=== PATIENT | female | born 2005 | race Caucasian/White ===

== ENCOUNTER 2024-06-12 18:16 | Emergency (ER) | payer MEDICAID ==
[~2024-06-12] VITALS: Ht 160 cm; Wt 84.3 kg
[~2024-06-12 18:16] MED LIST: ACET500T58 PO; FLUC200T PO; MET500T PO
[2024-06-12] MEDS ORDERED: SODIUM CHLORIDE 0.9% 1,000 ML IV ONE (18:45)
[2024-06-12] MEDS ORDERED: ONDANSETRON HCL 4 MG/2 ML VIAL IV ONE (18:45)
[2024-06-12 19:13] VITALS: BP 108/84; PULSE 98; RESP 16; O2SAT 100
[2024-06-12 19:33] LABS: Chloride 104 mmol/L (98-107); Potassium 3.5 mmol/L (3.5-5.1); Sodium 134 mmol/L (136-145)
[2024-06-12 19:34] LABS: Anion Gap 9 (5-15); Calcium 10.6 mg/dL (8.7-10.4); Carbon Dioxide 21 mmol/L (20-30)
[2024-06-12 19:39] LABS: BUN/Creatinine Ratio 8.8 (10.0-20.0); Blood Urea Nitrogen 6 mg/dL (9-23); Glucose 94 mg/dL (74-106)
[2024-06-12 20:28] LABS: Urine Bacteria FEW /hpf (None Seen); Urine Blood Negative /uL (Negative); Urine Clarity Clear (Clear); Urine Color Yellow (Yellow); Urine Mucus FEW (None Seen); Urine Protein, UAD TRACE (Negative); Urine Specific Gravity 1.023 (1.001-1.035); Urine Urobilinogen Normal (Negative); Urine WBC <1 /hpf (0 - 5)
[2024-06-12] MEDS ORDERED: ZOFR4T PO (20:44)
== END 2024-06-13 00:09 | disposition home or self-care (01) ==
LOC: ER 18:16
DX: O21.0 Mild hyperemesis gravidarum (principal); R10.2 Pelvic and perineal pain; Z3A.09 9 weeks gestation of pregnancy; Z87.891 Personal history of nicotine dependence
CPT/HCPCS: 36415; 76801; 80048; 81001; 84702; 99284; J2405